=== PATIENT | male | born 1965 | race African-American/Black ===

== ENCOUNTER 2016-11-27 05:31 | Inpatient (IN) ==
[2016-11-22 12:47] LABS: Basophils % 0.4 % (0.0-0.8); Eosinophils # 0.3 10*3/uL (0.0-0.87); Eosinophils % 3.6 % (0.00-10.9); Hematocrit 45.8 VOL% (42.0-52.0); Hemoglobin 16.2 GM/DL (14.0-18.0); Immature Granulocytes % 0.2 %; Immature Granulocytes Absolute 0.02 #; Lymphocytes # 2.8 10*3/uL (1.4-4.0); Lymphocytes % 32.3 % (21.2-54.2); Mean Corpuscular HGB Conc 35.4 GM/DL (32-36); Mean Corpuscular Hemoglobin 31 PG (27-34); Mean Corpuscular Volume 86.3 FL (87-102); Mean Platelet Volume 10.8 FL (9.6-12.0); Monocytes # 0.8 10*3/uL (0.11-0.8); Monocytes % 9.3 % (1.7-12.7); Neutrophils # 4.6 10*3/uL (1.4-7.4); Neutrophils % 54.2 % (38.7-73.9); Platelet Count 193 T/CUMM (130-400); Red Blood Count 5.31 MC/CUMM (3.8-5.5); Red Cell Distribution Width 13.5 % (9.3-17.3); White Blood Count 8.5 T/CUMM (4-12)
[2016-11-22 12:54] LABS: Apearance,Urine Slightly Hazy (Clear); Bacteria,Urine Occasional /HPF (Few); Bilirubin,Urine Negative (Negative); Blood, Urine Negative (Negative); Glucose,Urine (UA) Negative (Negative); Hyaline Casts,Urine 5 /LPF (0-3); Ketones,Urine Negative (Negative); Mucus,Urine Occasional /LPF (Occasional); Nitrite,Urine Negative (Negative); Protein,Urine >=500 MG/DL; RBC,Urine 3 /HPF (0-4); Squamous Epithelial Cell,Urine Occasional /HPF (0-10); Urine Color Yellow (Yellow); Urine Specific Gravity 1.023 (1.001-1.035); Urine Urobilinogen < 2.0 EU/DL (0.2-1.0); WBC,Urine 16 /HPF (0-6)
[2016-11-22 12:57] LABS: Partial Thromboplastin Time 26.4 SECS (0-40)
[2016-11-22 13:22] LABS: Albumin 3.4 G/DL (3.4-5.0); Bilirubin,Total 0.7 MG/DL (0.2-1.0); Osmolality,Calculated 277.3 MOS/KG (273-304); Total Protein 7.3 G/DL (6.4-8.3)
--- NOTE | 2016-11-22 13:28 | EKG Report ---
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
--- NOTE | 2016-11-22 13:30 | XRay Report ---
XR chest 2V Indication: Preop Comparison: None. Technique: PA and lateral chest x-ray was performed. Findings: Heart size, mediastinal contour, and hilar structures demonstrate no significant abnormalities. The lung parenchyma is clear. Bones and soft tissues demonstrate no significant abnormalities. Density within the right humeral head may reflect a focal area of enostosis. Impression: 1. No active cardiopulmonary disease. 11/22/2016 1:26 PM PROCEDURE INTERPRETED AT [facility] DEPARTMENT OF RADIOLOGY Final Report Signed by: Dr. Guru Neal
[2016-11-27] MEDS ORDERED: VANCOMYCIN INJ 1,000 MG in SODIUM CHLORIDE 0.9% 250 ML IV ONE (06:00)
[2016-11-27] MEDS ORDERED: LACTATED RINGERS 1,000 ML IV SCH (06:30)
[2016-11-27 06:33] LABS: Apearance,Urine CLEAR (Clear); Bacteria,Urine Occasional /HPF (Few); Bilirubin,Urine Negative (Negative); Blood, Urine Negative (Negative); Glucose,Urine (UA) Negative (Negative); Ketones,Urine Negative (Negative); Mucus,Urine Occasional /LPF (Occasional); Nitrite,Urine Negative (Negative); Protein,Urine 100 MG/DL; RBC,Urine 1 /HPF (0-4); Squamous Epithelial Cell,Urine Occasional /HPF (0-10); Urine Color Straw (Yellow); Urine Specific Gravity 1.005 (1.001-1.035); Urine Urobilinogen < 2.0 EU/DL (0.2-1.0); WBC,Urine 3 /HPF (0-6)
[2016-11-27] MEDS ORDERED: DIAZEPAM 5 MG TABLET PO ONE (06:46)
[2016-11-27] MEDS ORDERED: FAMOTIDINE 20 MG TABLET PO ONE (06:46)
[2016-11-27] MEDS ORDERED: hydrALAZINE 10 MG TABLET PO ONE (06:49)
--- NOTE | 2016-11-27 06:52 | History and Physical Update ---
History and Physical Update - History and Physical H&P was reviewed, the patient examined and there: are no changes in the patients condition since last H&P was completed. (had initially contaminated ua. ua this am negative.)
[2016-11-27] MEDS ORDERED: VANCOMYCIN 1,000 MG VIAL ONE (07:30)
[2016-11-27] MEDS ORDERED: ceFAZolin 1,000 MG VIAL ONE (07:30)
[2016-11-27] MEDS ORDERED: DIAZEPAM 5 MG TABLET ONE (07:31)
[2016-11-27] MEDS ORDERED: FAMOTIDINE 20 MG TABLET ONE (07:31)
[2016-11-27] MEDS ORDERED: SODIUM CHLORIDE 0.9% 100 ML IV ONE (07:31)
[2016-11-27] MEDS ORDERED: hydrALAZINE 20 MG/1 ML VIAL ONE ×2 (07:31→09:17)
[2016-11-27] MEDS ORDERED: TRANEXAMIC ACID 1,000 MG/10 ML VIAL IV ONE (09:06)
[2016-11-27] MEDS ORDERED: ONDANSETRON 4 MG/2 ML VIAL IV PRN (09:25)
[2016-11-27] MEDS ORDERED: ZALEPLON 5 MG CAPSULE PO PRN (09:25)
[2016-11-27] MEDS ORDERED: MAGNESIUM HYDROXIDE SUSP 30 ML UDCUP PO PRN (09:25)
[2016-11-27] MEDS ORDERED: diphenhydrAMINE CAP 25 MG CAPSULE PO PRN (09:25)
[2016-11-27] MEDS ORDERED: oxyCODONE IR 5 MG TABLET PO PRN ×2 (09:25)
[2016-11-27] MEDS ORDERED: MORPHINE 2 MG/1 ML SYRINGE IV PRN ×2 (09:25)
[2016-11-27] MEDS ORDERED: PROPOFOL 200 MG/20 ML VIAL IV ONE ×2 (09:27→12:42)
[2016-11-27] MEDS ORDERED: hydrALAZINE 20 MG/1 ML VIAL IV ONE (09:27)
[2016-11-27] MEDS ORDERED: METOPROLOL TARTRATE 5 MG/5 ML VIAL IV ONE ×2 (09:27→12:44)
[2016-11-27] MEDS ORDERED: LIDOCAINE 2% 5 ML VIAL ONE (09:27)
--- NOTE | 2016-11-27 09:36 | Operative Note ---
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 Left lower extremities prepped and draped in usual sterile fashion. Posteriolateral approach to the hip was made. Skin, subcutaneous tissue and deep fascia was incised longitudinally. Gluteus elvis muscle belly was split in line with its fibers. Piriformis, external rotators and capsule were taken down as a single layer as an inverted L shaped capsulotomy. Hip was dislocated. Templated femoral neck cut was made. Acetabulum was prepared by sequentially reaming to 53 mm. A 54 mm Continuum acetabular shell was press-fit with excellent stability. 1 6.5 millimeter screw was placed with an excellent bite. 32 mm neutral Longevity liner was placed with a dome hole plug. Femur was prepared sequentially with the box osteotome, canal finder and sequential broaches to 14. Components were trialed. A size 14 Versys fiber metal tapered stem was press-fit. A 32+0 mm head was placed. The component was stable posteriorly and anteriorly. Capsule was repaired with #5 Tycron. Deep fascia was closed with 0 Vicryl figure-of- eight suture. Subcutaneous tissue was closed deep with a 2-0 Vicryl runner and superficially with 3-0 interrupted buried sutures. Skin was closed with raysa. Bacitracin and a sterile occlusive dressing was applied. Surgeon / Physician: Oswald Pantoja Jr. Results - Labs CBC & BMP: 11/22/16 12:38 11/22/16 12:38 Discharge Plan - Discharge Medications No Action Carvedilol [Coreg] 25 mg PO DAILY - Follow Up or Referral - Forms/Instructions
[2016-11-27] MEDS ORDERED: BACITRACIN OINT 0.9 GM PACK TOP ONE (10:49)
[2016-11-27 11:08] LABS: Apearance,Urine CLEAR (Clear); Bilirubin,Urine Negative (Negative); Blood, Urine Negative (Negative); Glucose,Urine (UA) Negative (Negative); Ketones,Urine Negative (Negative); Nitrite,Urine Negative (Negative); Protein,Urine Negative; RBC,Urine <1 /HPF (0-4); Squamous Epithelial Cell,Urine Occasional /HPF (0-10); Urine Color Straw (Yellow); Urine Specific Gravity 1.004 (1.001-1.035); Urine Urobilinogen < 2.0 EU/DL (0.2-1.0); WBC,Urine 3 /HPF (0-6)
--- NOTE | 2016-11-27 12:23 | XRay Report ---
XR hip 1V LT Indication: Joint replacement (left hip) Comparison: Left hip x-ray dated March 14, 2016 Technique: Single frontal view of the left hip Findings: Status post total left hip arthroplasty. No evidence of immediate hardware failure. Superficial skin raysa overlie the hip. Subcutaneous and joint space air noted which is likely postoperative. IMPRESSION: Status post total left hip arthroplasty. PROCEDURE INTERPRETED AT [facility] DEPARTMENT OF RADIOLOGY Final Report Signed by: Dr Jorge Beyer
[2016-11-27] MEDS ORDERED: KETAMINE 500 MG/10 ML VIAL ONE (12:43)
[2016-11-27] MEDS ORDERED: SODIUM CHLORIDE 0.9% 250 ML IV ONE (12:44)
[2016-11-27] MEDS ORDERED: MIDAZOLAM 2 MG/2 ML VIAL ONE (12:44)
[2016-11-27] MEDS ORDERED: fentaNYL 100 MCG/2 ML VIAL ONE (12:44)
[2016-11-27] MEDS ORDERED: MORPHINE 10 MG/10 ML VIAL ONE (12:44)
--- NOTE | 2016-11-27 13:55 | Hospitalist Consult Note ---
Assessment and Plan (1) Left hip pain Status: Acute Assessment and plan: POD#0 s/p left VIDA. Defer post-op management to include pain control and DVt prevention to ortho Current Visit: Yes (2) HTN (hypertension) Status: Chronic Assessment and plan: Chronic and controlled with home med which has been restarted Current Visit: Yes History of Present Illness - Data of Consult Consult date: 11/27/16 - Consult Narrative Reason for consult: HTN History of present illness: Mr. Iniguez is a 51 year old male admitted to the orthopedic service for end stage OA of the left hip that has not responded to conservative tx. He is currently POD#0 s/p left VIDA. PMH is also significant for HTN and gout. Hospitalist have been consulted to assist in management of HTN. Pt is prescribed Coreg and reports good BP control with this med as an out patient. Pt reports no uncontrolled pain or any other complaints at present. CC: Left Hip PAin - Home Medications and Allergies Home Medications: Home Medications Medication Instructions Recorded Confirmed Type Carvedilol [Coreg] 25 mg PO DAILY 01/17/15 11/27/16 History Allergies/Adverse Reactions: Allergies Allergy/AdvReac Type Severity Reaction Status Date / Time No Known Allergies Allergy Verified 11/27/16 07:46 Medical,Surgical,& Family Hx - Medical History Cardio: History of: Hypertension Neurology: No history of: Seizures HEENT: History of: Eye Problem (GLASSES) Endocrine: No history of: Diabetes Mellitus (IDDM), Diabetes Mellitus (NIDDM) Respiratory: No history of: Asthma, Pneumonia Renal: No history of: Renal Failure, Renal Problems Gastrointestinal: No history of: Gastrointestinal Bleed, Liver Problems, GI Problems Musculoskeletal: History of: Musculoskeletal Problems (OA LEFT FEMORAL NECK NON UNION) - Surgical History Abdominal Surgeries: Surgical HX of: Hernia Repair Orthopedic Surgeries: Surgical HX of;: Total Hip Replacement (LEFT HIP) - Family History Family History: Reports;: Family Diabetes (GF) - Social History Smoking Status: Never smoker Frequency of Alcohol Use: None Type of Drug Use: None 12 point system: reviewed and no additional remarkable complaints except as stated - Constitutional Constitutional: Present: as per HPI - EENT Eyes: Absent: loss of vision - Musculoskeletal Musculoskeletal: Present: arthralgias - Neurological Neurological: Present: abnormal gait Exam - Constitutional Vitals: Period Temp Pulse Resp BP Sys/Flor Pulse Ox Last 24 Hr 98 F-99.6 F 49-77 16-20 125-204/88-126 95-99 General appearance: no acute distress - Head Head exam: Present: normal inspection, normocephalic, atraumatic - Eye Eye exam: Present: EOMI. Absent: conjunctival injection, scleral icterus Pupils: Present: SATISH - ENT ENT exam: Present: normal exam - Neck Neck exam: Present: normal inspection. Absent: lymphadenopathy, meningismus - Respiratory Respiratory exam: Present: clear to auscultation bilaterally. Absent: accessory muscle use, rales, rhonchi, wheezes - Cardiovascular Cardiovascular exam: Present: regular rate and rhythm. Absent: gallop, rubs - GI/Abdominal GI/Abdominal exam: Present: normal bowel sounds, soft. Absent: distended, tenderness - Extremities Exam Extremities exam: Present: other (left LE surgical site CDI). Absent: edema - Neurological Exam Neurological exam: Present: alert, oriented X3. Absent: motor sensory deficit - Psychiatric Psychiatric exam: Present: normal affect, normal mood - Skin Skin exam: Present: normal color, warm, dry Results - Labs CBC & BMP: 11/22/16 12:38 11/22/16 12:38
[2016-11-27] MEDS: LACTATED RINGERS 1,000 ML IV SCH ×2 (15:12→18:04)
[2016-11-27] MEDS: KETOROLAC 30 MG/1 ML VIAL IV SCH ×4 (15:12→23:44)
[2016-11-27] MEDS: ACETAMINOPHEN 500 MG TABLET PO SCH ×2 (15:16→19:03)
[2016-11-27] MEDS: ceFAZolin 2,000 MG in PREMIX 1 EACH IV SCH ×2 (15:23→21:54)
[2016-11-27] MEDS: DOCUSATE SODIUM 100 MG CAPSULE PO SCH (21:52)
[2016-11-28] MEDS: LACTATED RINGERS 1,000 ML IV SCH (00:29)
[2016-11-28] MEDS: ACETAMINOPHEN 500 MG TABLET PO SCH ×2 (00:30→06:32)
[2016-11-28] MEDS ORDERED: FONDAPARINUX 2.5 MG/0.5 ML SYRINGE SUBCUT SCH (03:27)
[2016-11-28] MEDS: KETOROLAC 30 MG/1 ML VIAL IV SCH ×2 (03:55→09:33)
[2016-11-28 05:19] LABS: Basophils % 0.2 % (0.0-0.8); Eosinophils # 0.1 10*3/uL (0.0-0.87); Eosinophils % 1.2 % (0.00-10.9); Hematocrit 33.2 VOL% (42.0-52.0); Hemoglobin 11.5 GM/DL (14.0-18.0); Immature Granulocytes % 0.5 %; Immature Granulocytes Absolute 0.04 #; Lymphocytes # 1.8 10*3/uL (1.4-4.0); Lymphocytes % 20.3 % (21.2-54.2); Mean Corpuscular HGB Conc 34.6 GM/DL (32-36); Mean Corpuscular Hemoglobin 30 PG (27-34); Mean Corpuscular Volume 87.6 FL (87-102); Mean Platelet Volume 10.9 FL (9.6-12.0); Monocytes # 0.8 10*3/uL (0.11-0.8); Monocytes % 9.3 % (1.7-12.7); Neutrophils % 68.5 % (38.7-73.9); Platelet Count 136 T/CUMM (130-400); Red Blood Count 3.79 MC/CUMM (3.8-5.5); Red Cell Distribution Width 13.2 % (9.3-17.3); White Blood Count 8.7 T/CUMM (4-12)
[2016-11-28 05:42] LABS: Hypochromasia 1+; Platelet Estimate Adequate
[2016-11-28 05:48] LABS: Calcium 8.1 MG/DL (8.5-10.1); Osmolality,Calculated 276.4 MOS/KG (273-304); Potassium 3.6 MMOL/L (3.5-5.1)
[2016-11-28] MEDS: DOCUSATE SODIUM 100 MG CAPSULE PO SCH ×2 (08:34→20:42)
[2016-11-28] MEDS: CARVEDILOL 25 MG TABLET PO SCH (08:34)
--- NOTE | 2016-11-28 08:54 | Orthopedic Progress Note ---
Orthopedics - Subjective Interval history: Mr. Iniguez has done well with physical therapy. He has noticed a tremendous difference in his hip. He sat up in a chair approximately 90 minutes yesterday. Reviewing his stickers and implants today demonstrates that he has a mismatch between his liner and head, because the wrong implants were opened. The patient has a 32 mm head with a 36 mm liner. His wound demonstrates moderate serosanguineous drainage. His left lower extremities neurovascularly intact. Impression: Head-liner mismatch left hip Plan: I have discussed with the patient that the wrong implants were opened. Unfortunately, we will have to revise his components with a head exchange. I' ve apologized. I am going to hold his Arixtra and put him on the schedule for tomorrow. All questions were answered. Proceed with physical therapy today. Exam - Constitutional Vitals: Period Temp Pulse Resp BP Sys/Flor Pulse Ox Last 24 Hr 97.7 F-99.5 F 49-79 16-20 124-166/76-113 95-100 Results - Labs CBC & BMP: 11/28/16 05:06 11/28/16 05:06
[2016-11-28] MEDS ORDERED: ACETAMINOPHEN 325 MG TABLET PO PRN (09:26)
--- NOTE | 2016-11-28 10:01 | Hospitalist Progress Note ---
Assessment and Plan - Time spent with patient Time spent with patient: Greater than 30 minutes (1) S/P total hip arthroplasty Status: Acute Assessment and plan: Defer to Ortho. Current Visit: Yes (2) HTN (hypertension) Status: Chronic Assessment and plan: Seems well controlled. Left arm blood pressure anomaly is likely an error. Current Visit: Yes Hospitalist: Subjective Interval history: No complaints or overnight events. Mild temperature of 99.5. Left arm blood pressure was documented at 204/126. Right arm blood pressures have been stable. Exam - Constitutional Vitals: Period Temp Pulse Resp BP Sys/Flor Pulse Ox Last 24 Hr 97.7 F-99.5 F 49-79 16-20 124-166/76-113 95-100 General appearance: no acute distress - Head Head exam: Present: normocephalic, atraumatic - Eye Eye exam: Present: EOMI Pupils: Present: SATISH - ENT ENT exam: Present: normal exam - Neck Neck exam: Present: normal inspection - Respiratory Respiratory exam: Present: clear to auscultation bilaterally. Absent: rhonchi, wheezes - Cardiovascular Cardiovascular exam: Present: regular rate and rhythm. Absent: gallop, rubs, systolic murmur - GI/Abdominal GI/Abdominal exam: Present: normal bowel sounds, soft. Absent: distended, firm , guarding, tenderness, rebound - Extremities Exam Extremities exam: Present: normal inspection, other (left leg hip incision). Absent: calf tenderness, edema Results - Labs CBC & BMP: 11/28/16 05:06 11/28/16 05:06 Lab Results: I have reviewed the past 24 hour labs
--- NOTE | 2016-11-28 11:53 | Anesthesia Post-Op ---
Anesthesia Post OP - Post Ansesthetic Evaluation Patient seen in post op: Yes Resp: within normal limits CV: within normal limits Mental: within normal limits Temp: within normal limits Uroq-Vx-Hihywxmnx: within normal limits Nausea and Vomiting: within normal limits Pain: within normal limits
[2016-11-28 12:56] LABS: Fibrinogen Quant Value 428 MG% (200-400); INR 1.2; PT Patient Result 12.7 SECS
--- NOTE | 2016-11-28 13:28 | Pathology Report from [facility] ---
[facility] ACCESSION # : [id number] PATIENT NAME : Elvis Kingston ORDERING DR : PRASAD WINN MD CLINICAL HX: Left hip osteoarthritis - Non union POST-OP DX: Same SPECIMEN INFO: Left hip bursa tissue GROSS DESCRIPTION: The specimen is received in formalin labeled with the patients name and consists of a focally degenerative femoral head measuring 4.5 x 4.8 x 5.5 cm. The articular surface is focally roughened with no subchondral eburnation seen. Received separately in the container is a portion of femoral neck measuring 3.8 x 2.5 x 2.2 cm. Cut surfaces are smooth with no softening appreciated. Sketch Maker tissue submitted in one cassette following decalcification. DIAGNOSIS FOR ELVIS KINGSTON: LEFT HIP BONE & TISSUE, TOTAL REPLACEMENT: Osteoarthritis. COLLECTED DATE: 11/27/2016 [facility] REPORT DATE: 11/28/2016 ELECTRONICALLY SIGNED BY: Berhane Joshi M.D. 11/28/2016 - 10:29:25 MTDAshanti
[2016-11-28] MEDS: CELECOXIB 200 MG CAPSULE PO SCH (15:34)
[2016-11-29 04:53] LABS: Basophils % 0.1 % (0.0-0.8); Eosinophils # 0.1 10*3/uL (0.0-0.87); Eosinophils % 1.4 % (0.00-10.9); Hematocrit 28.4 VOL% (42.0-52.0); Hemoglobin 10.2 GM/DL (14.0-18.0); Immature Granulocytes % 1.4 %; Immature Granulocytes Absolute 0.13 #; Lymphocytes # 2.2 10*3/uL (1.4-4.0); Mean Corpuscular HGB Conc 35.9 GM/DL (32-36); Mean Corpuscular Hemoglobin 31 PG (27-34); Mean Corpuscular Volume 87.1 FL (87-102); Mean Platelet Volume 10.7 FL (9.6-12.0); Monocytes # 1.1 10*3/uL (0.11-0.8); Neutrophils % 63.1 % (38.7-73.9); Platelet Count 120 T/CUMM (130-400); Red Blood Count 3.26 MC/CUMM (3.8-5.5); Red Cell Distribution Width 13.1 % (9.3-17.3); White Blood Count 9.6 T/CUMM (4-12)
[2016-11-29] MEDS ORDERED: VANCOMYCIN INJ 1,000 MG in SODIUM CHLORIDE 0.9% 250 ML IV ONE (05:00)
[2016-11-29 05:23] LABS: Osmolality,Calculated 275.4 MOS/KG (273-304); Potassium 3.2 MMOL/L (3.5-5.1)
[2016-11-29 05:24] LABS: Hypochromasia 1+; Lymphocytes 19 % (20-55); Platelet Estimate Normal; Segmented Neutrophils 75 % (50-85); Total Cells Counted 100
[2016-11-29] MEDS ORDERED: ceFAZolin 2,000 MG in PREMIX 1 EACH IV ONE (06:00)
[2016-11-29] MEDS ORDERED: PHENYLEPHRINE 1 MG/10 ML SYRINGE IV ONE (06:59)
[2016-11-29] MEDS ORDERED: PROPOFOL 200 MG/20 ML VIAL IV ONE (06:59)
[2016-11-29] MEDS ORDERED: MORPHINE 10 MG/10 ML VIAL ONE (07:00)
--- NOTE | 2016-11-29 07:19 | Orthopedic Progress Note ---
Orthopedics - Subjective Interval history: Mr. Iniguez was able to walk in the pantoja yesterday. He has been pleased with his pain relief. Exam left lower extremity shows moderate serosanguineous drainage. His left lower extremities neurovascularly intact. Impression: Head-liner mismatch status post left total hip arthroplasty Plan: I reviewed the indication rationale for the revision procedure. All questions were answered. Exam - Constitutional Vitals: Period Temp Pulse Resp BP Sys/Flor Pulse Ox Last 24 Hr 98.8 F-100.4 F 69-98 16-20 119-162/78-91 97-100 Results - Labs CBC & BMP: 11/29/16 04:41 11/29/16 04:41
--- NOTE | 2016-11-29 07:29 | Operative Note ---
Procedure: DIAGNOSIS: Left head-liner mismatch status post left total hip arthroplasty PROCEDURE: Revision left total hip with head exchange SURGEON: Scarlett ANESTHESIA: Spinal PROCEDURE and FINDINGS: After adequate anesthesia was induced, the patient was placed in lateral decubitus position. His left hip was prepped and draped in usual sterile fashion. His raysa and previous sutures were removed. A large subfascial organizing hematoma was removed. His hip was dislocated. 32 mm femoral head was removed and replaced with 36 mm +0 femoral head. His wound was copiously irrigated. His wound was closed in layers. Capsule was closed with #5 Tycron mfucwv-kf-aqata suture. The fascia was closed with 0 Vicryl yyjxvm-vm-ialpw suture. Subcutaneous tissue was closed deep with a 2-0 Vicryl runner and superficially with 3-0 Vicryl interrupted buried suture. Raysa were utilized to close the skin. Surgeon / Physician: Oswald Pantoja Jr. Results - Labs CBC & BMP: 11/29/16 04:41 11/29/16 04:41 Discharge Plan - Discharge Medications No Action Carvedilol 6.25 mg PO DAILY - Follow Up or Referral - Forms/Instructions
[2016-11-29] MEDS ORDERED: DEXTROSE 5% LACTATED RINGERS 1,000 ML IV SCH (07:30)
[2016-11-29] MEDS ORDERED: TRANEXAMIC ACID 1,000 MG/10 ML VIAL IV ONE (07:49)
[2016-11-29] MEDS ORDERED: BACITRACIN OINT 0.9 GM PACK TOP ONE (07:49)
--- NOTE | 2016-11-29 08:23 | Anesthesia Post-Op ---
Anesthesia Post OP - Post Ansesthetic Evaluation Patient seen in post op: Yes Resp: within normal limits CV: within normal limits Mental: within normal limits Temp: within normal limits Ddpk-Aj-Ynfmjsdxz: within normal limits Nausea and Vomiting: within normal limits Pain: within normal limits
[2016-11-29] MEDS ORDERED: fentaNYL 100 MCG/2 ML VIAL ONE (08:30)
[2016-11-29] MEDS ORDERED: MIDAZOLAM 2 MG/2 ML VIAL ONE (08:30)
[2016-11-29] MEDS ORDERED: KETAMINE 500 MG/10 ML VIAL ONE (08:31)
--- NOTE | 2016-11-29 08:32 | Discharge Summary ---
<Oswald Pantoja Jr. - Last Filed: 11/29/16 08:33> Hospital Course - Hospital Course Hospital Course: Mr. Iniguez was admitted after undergoing a left total hip arthroplasty. The procedure was complicated with the wrong components being opened and implanted. The patient underwent revision femoral stem with a head exchange from a 32+0 mm head to a 36+0 mm head. He received perioperative DVT and antimicrobial prophylaxis. He received physical therapy. He was discharged home in stable condition. Discharge Plan - Discharge Data Disposition: Disch To Home/Self Care Condition at Discharge: Stable Discharge Diet: advance to your usual diet Activity: ambulate only with your walker Hygiene: may shower Weight Bearing at Discharge: weight bear as tolerated Driving: not until seen by doctor - Discharge Medications Continue Carvedilol 6.25 mg PO DAILY - Follow Up or Referral - Forms/Instructions Additional Discharge Instructions: Posterior hip precautions for 3 months. Daily dry dressing changes. Arrange for walker and bedside commode for home use. Wear RICHIE hose for 1 month. Follow-up appointment in 10 days. Prescription for [place] 7.5 was written. Take aspirin 325 mg by mouth daily for 21 days. Set up outpatient physical therapy 3 times a week for 4 weeks. Exam - Constitutional Vitals: Period Temp Pulse Resp BP Sys/Flor Pulse Ox Last 24 Hr 97.0 F-101.2 F 71-82 18-20 127-164/76-88 96-100 DS: Provider Date of admission: 11/27/16 05:31 Primary care physician: . No PCP Attending physician on admission: Oswald Pantoja Jr., Consults: 11/27/16 09:25 Consult to Case Mgmt/Social Srvs [CONS] Routine Reason for Case Mgmt/Social Srvs: Rehab Home Health Equipment Consult Comment: Bedside Commode,Del to RM 317 Today before D/C home; Pt 5ft 11in 202lbs Consult to Occupational Therapy [CONS] Routine Reason for Occupational Therapy: Evaluate and Treat Consult Comment: ADL's Consult to Physical Therapy [CONS] Routine Reason for Physical Therapy: Evaluate and Treat Gait Training Start Therapy: Today Consult Comment: wbat with walker, posterior hip precautions 11/27/16 11:22 Consult to Physician [CONS] Routine 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 Provider: Consulting Provider Notified: Yes When should Consulting Provider be notified: Now Consult to Specialist Group: Hospitalist When should Consulting Provider be notified: Now Person Notified: nikko called Date Notified: 11/27/16 Time Notified: 13:32 11/28/16 15:25 Consult to Outpatient Therapy [CONS] Routine Reason for Outpatient Therapy: Physical Therapy Consult Comment: Pt will do OP Rehab @ [facility] after inpatient @ [facility] when D/C'd Discharging clinician: Oswald Pantoja Jr., <Clive Skelton - Last Filed: 12/01/16 10:23> Diagnosis - Discharge Diagnosis (1) S/P total hip arthroplasty Status: Acute
[2016-11-29] MEDS ORDERED: LACTATED RINGERS 1,000 ML IV SCH (09:00)
[2016-11-29] MEDS: CARVEDILOL 25 MG TABLET PO SCH (09:35)
[2016-11-29] MEDS: DOCUSATE SODIUM 100 MG CAPSULE PO SCH ×2 (09:35→20:37)
[2016-11-29] MEDS: CELECOXIB 200 MG CAPSULE PO SCH (09:35)
[2016-11-29] MEDS: POTASSIUM CHLORIDE 20 MEQ TABLET PO SCH ×2 (09:36→20:38)
--- NOTE | 2016-11-29 11:12 | Orthopedic Progress Note ---
Orthopedics - Subjective Interval history: Post op check. Comfortable. Dressing dry. NV ok. Mobilize with therapy. Exam - Constitutional Vitals: Period Temp Pulse Resp BP Sys/Flor Pulse Ox Last 24 Hr 98.6 F-100.4 F 70-98 16-20 128-162/78-97 96-100 Results - Labs CBC & BMP: 11/29/16 04:41 11/29/16 04:41
[2016-11-29] MEDS: ceFAZolin 2,000 MG in PREMIX 1 EACH IV SCH ×2 (13:34→21:38)
--- NOTE | 2016-11-29 13:39 | Hospitalist Progress Note ---
Assessment and Plan - Time spent with patient Time spent with patient: Greater than 30 minutes (1) S/P total hip arthroplasty Status: Acute Assessment and plan: Defer to Ortho. Current Visit: Yes (2) HTN (hypertension) Status: Chronic Assessment and plan: Seems well controlled. Current Visit: Yes Hospitalist: Subjective Interval history: Patient has returned from the OR where he had a revision of his hardware. Currently no complaints. Exam - Constitutional Vitals: Period Temp Pulse Resp BP Sys/Flor Pulse Ox Last 24 Hr 98.6 F-100.4 F 61-98 16-20 117-162/73-97 94-100 General appearance: no acute distress - Head Head exam: Present: normocephalic, atraumatic - Eye Eye exam: Present: EOMI Pupils: Present: SATISH - ENT ENT exam: Present: normal exam - Neck Neck exam: Present: normal inspection - Respiratory Respiratory exam: Present: clear to auscultation bilaterally. Absent: rhonchi, wheezes - Cardiovascular Cardiovascular exam: Present: regular rate and rhythm. Absent: gallop, rubs, systolic murmur - GI/Abdominal GI/Abdominal exam: Present: normal bowel sounds, soft. Absent: distended, firm , guarding, tenderness, rebound - Extremities Exam Extremities exam: Present: normal inspection. Absent: calf tenderness, edema Results - Labs CBC & BMP: 11/29/16 04:41 11/29/16 04:41 Lab Results: I have reviewed the past 24 hour labs
[2016-11-30 05:15] LABS: Basophils % 0.1 % (0.0-0.8); Eosinophils # 0.2 10*3/uL (0.0-0.87); Eosinophils % 2.6 % (0.00-10.9); Hematocrit 25.6 VOL% (42.0-52.0); Hemoglobin 8.9 GM/DL (14.0-18.0); Immature Granulocytes % 0.4 %; Immature Granulocytes Absolute 0.03 #; Lymphocytes # 1.7 10*3/uL (1.4-4.0); Lymphocytes % 21.4 % (21.2-54.2); Mean Corpuscular HGB Conc 34.8 GM/DL (32-36); Mean Corpuscular Hemoglobin 31 PG (27-34); Mean Corpuscular Volume 88.6 FL (87-102); Mean Platelet Volume 10.4 FL (9.6-12.0); Monocytes # 0.8 10*3/uL (0.11-0.8); Monocytes % 10.2 % (1.7-12.7); Neutrophils # 5.2 10*3/uL (1.4-7.4); Neutrophils % 65.3 % (38.7-73.9); Platelet Count 137 T/CUMM (130-400); Red Blood Count 2.89 MC/CUMM (3.8-5.5); Red Cell Distribution Width 13.1 % (9.3-17.3)
[2016-11-30] MEDS: FONDAPARINUX 2.5 MG/0.5 ML SYRINGE SUBCUT SCH (06:05)
[2016-11-30 08:21] LABS: Calcium 7.9 MG/DL (8.5-10.1); Osmolality,Calculated 278.3 MOS/KG (273-304); Potassium 3.7 MMOL/L (3.5-5.1)
[2016-11-30] MEDS: CELECOXIB 200 MG CAPSULE PO SCH (09:27)
[2016-11-30] MEDS: DOCUSATE SODIUM 100 MG CAPSULE PO SCH ×2 (09:28→20:00)
[2016-11-30] MEDS: CARVEDILOL 25 MG TABLET PO SCH (09:28)
[2016-11-30] MEDS: POTASSIUM CHLORIDE 20 MEQ TABLET PO SCH (09:29)
--- NOTE | 2016-11-30 10:05 | Orthopedic Progress Note ---
Assessment and Plan (1) S/P total hip arthroplasty Status: Acute Assessment and plan: DVT prophylaxis Continue therapy Daily dressing change Possible discharge to rehab tomorrow Current Visit: Yes Orthopedics - Subjective Interval history: Patient states his hip is sore this morning. Otherwise no complaints. He is sitting in the chair and has ambulated with therapy. On exam, his dressings clean and dry. Exam - Constitutional Vitals: Period Temp Pulse Resp BP Sys/Flor Pulse Ox Last 24 Hr 97.7 F-99.4 F 69-94 17-20 106-149/55-87 94-100 Results - Labs CBC & BMP: 11/30/16 04:59 11/30/16 05:00
--- NOTE | 2016-11-30 13:45 | Hospitalist Progress Note ---
Assessment and Plan - Time spent with patient Time spent with patient: Greater than 30 minutes (1) S/P total hip arthroplasty Status: Acute Assessment and plan: Defer to Ortho. Current Visit: Yes (2) HTN (hypertension) Status: Chronic Assessment and plan: Seems well controlled. Current Visit: Yes Hospitalist: Subjective Interval history: No complaints or overnight events. Revision of hardware yesterday. Exam - Constitutional Vitals: Period Temp Pulse Resp BP Sys/Flor Pulse Ox Last 24 Hr 97.7 F-99.4 F 73-90 18-20 106-149/55-81 96-100 General appearance: no acute distress - Head Head exam: Present: normocephalic, atraumatic - Eye Eye exam: Present: EOMI Pupils: Present: SATISH - ENT ENT exam: Present: normal exam - Neck Neck exam: Present: normal inspection - Respiratory Respiratory exam: Present: clear to auscultation bilaterally. Absent: rhonchi, wheezes - Cardiovascular Cardiovascular exam: Present: regular rate and rhythm. Absent: gallop, rubs, systolic murmur - GI/Abdominal GI/Abdominal exam: Present: normal bowel sounds, soft. Absent: distended, firm , guarding, tenderness, rebound - Extremities Exam Extremities exam: Present: normal inspection. Absent: calf tenderness, edema Results - Labs CBC & BMP: 11/30/16 04:59 11/30/16 05:00 Lab Results: I have reviewed the past 24 hour labs
[2016-12-01] MEDS: FONDAPARINUX 2.5 MG/0.5 ML SYRINGE SUBCUT SCH (06:07)
[2016-12-01] MEDS: DOCUSATE SODIUM 100 MG CAPSULE PO SCH (08:34)
[2016-12-01] MEDS: CELECOXIB 200 MG CAPSULE PO SCH (08:34)
[2016-12-01] MEDS: CARVEDILOL 25 MG TABLET PO SCH (08:35)
--- NOTE | 2016-12-01 09:58 | Orthopedic Progress Note ---
Assessment and Plan (1) S/P total hip arthroplasty Status: Acute Assessment and plan: Patient desires to be discharged home rather than to rehab, he is currently unsure of why there are plans for discharge to rehab. We will continue physical therapy today We will plan to discharge patient home or to rehab tomorrow after discussion with Dr. Pantoja, his primary physician Current Visit: Yes Orthopedics - Subjective Interval history: Patient continues to improve, has minimal complaints this morning. On exam his dressings clean and dry, is neurovascularly intact. Exam - Constitutional Vitals: Period Temp Pulse Resp BP Sys/Flor Pulse Ox Last 24 Hr 97.0 F-101.2 F 71-82 18-20 127-164/76-88 96-100 Results - Labs CBC & BMP: 11/30/16 04:59 11/30/16 05:00
[2016-12-01 11:08] VITALS: BP 142/87
--- NOTE | 2016-12-01 14:04 | Hospitalist Progress Note ---
Assessment and Plan - Time spent with patient Time spent with patient: Greater than 30 minutes (1) S/P total hip arthroplasty Status: Acute Assessment and plan: Defer to Ortho. Current Visit: Yes (2) HTN (hypertension) Status: Chronic Assessment and plan: Seems well controlled. Current Visit: Yes Hospitalist: Subjective Interval history: No overnight events, no complaints. Exam - Constitutional Vitals: Period Temp Pulse Resp BP Sys/Flor Pulse Ox Last 24 Hr 97.0 F-101.2 F 68-82 16-20 128-164/76-88 96-100 General appearance: no acute distress - Head Head exam: Present: normocephalic, atraumatic - Eye Eye exam: Present: EOMI Pupils: Present: SATISH - ENT ENT exam: Present: normal exam - Neck Neck exam: Present: normal inspection - Respiratory Respiratory exam: Present: clear to auscultation bilaterally. Absent: rhonchi, wheezes - Cardiovascular Cardiovascular exam: Present: regular rate and rhythm. Absent: gallop, rubs, systolic murmur - GI/Abdominal GI/Abdominal exam: Present: normal bowel sounds, soft. Absent: distended, firm , guarding, tenderness, rebound - Extremities Exam Extremities exam: Present: normal inspection. Absent: calf tenderness, edema Results - Labs CBC & BMP: 11/30/16 04:59 11/30/16 05:00 Lab Results: I have reviewed the past 24 hour labs Specialty Discharge - Follow Up or Referrals Follow up with: Oswald Pantoja Jr., MD [Physician] - (Call Office Friday December 02, 2016 and make follow up apointment for 10 days.)
--- NOTE | 2016-12-02 12:16 | Pathology Report from [facility] ---
[facility] ACCESSION # : [id number] PATIENT NAME : Elvis Kingston ORDERING DR : PRASAD WINN MD CLINICAL HX: Head linear mismatch status post left total hip POST-OP DX: Same SPECIMEN INFO: Femoral head hardware GROSS DESCRIPTION: Received fresh labeled with the patients name ELVIS KINGSTON and consists of orthopedic hardware. Gross only. DIAGNOSIS FOR ELVIS KINGSTON: Femoral head orthopedic hardware, gross only. COLLECTED DATE: 11/29/2016 [facility] REPORT DATE: 12/02/2016 ELECTRONICALLY SIGNED BY: Naya Celis III, M.D. 12/02/2016 - 9:18:58 MTDAshanti
== END 2016-12-01 11:30 | disposition home or self-care (01) | DRG 301 ==
LOC: N.SDSINP 05:31 → N.3E 12:37
PROVIDERS: ADMIT Orthopaedic Surgery; ATTEND Orthopaedic Surgery

== ENCOUNTER 2017-03-04 06:36 | Inpatient (IN) ==
--- NOTE | 2017-03-03 09:28 | EKG Report ---
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
[2017-03-03 09:32] LABS: Basophils % 0.3 % (0.0-0.8); Eosinophils # 0.3 10*3/uL (0.0-0.87); Eosinophils % 3.6 % (0.00-10.9); Hematocrit 47.2 VOL% (42.0-52.0); Hemoglobin 16.2 GM/DL (14.0-18.0); Immature Granulocytes % 0.3 %; Immature Granulocytes Absolute 0.02 #; Lymphocytes # 1.6 10*3/uL (1.4-4.0); Lymphocytes % 23.3 % (21.2-54.2); Mean Corpuscular HGB Conc 34.3 GM/DL (32-36); Mean Corpuscular Hemoglobin 29 PG (27-34); Mean Corpuscular Volume 83.8 FL (87-102); Mean Platelet Volume 10.6 FL (9.6-12.0); Monocytes # 0.7 10*3/uL (0.11-0.8); Monocytes % 10.1 % (1.7-12.7); Neutrophils # 4.3 10*3/uL (1.4-7.4); Neutrophils % 62.4 % (38.7-73.9); Platelet Count 175 T/CUMM (130-400); Red Blood Count 5.63 MC/CUMM (3.8-5.5); Red Cell Distribution Width 14.5 % (9.3-17.3); White Blood Count 6.9 T/CUMM (4-12)
[2017-03-03 09:37] LABS: Apearance,Urine Slightly Hazy (Clear); Bilirubin,Urine Negative (Negative); Blood, Urine Negative (Negative); Glucose,Urine (UA) Negative (Negative); Ketones,Urine Negative (Negative); Mucus,Urine Occasional /LPF (Occasional); Nitrite,Urine Negative (Negative); Protein,Urine 100 MG/DL; RBC,Urine 1 /HPF (0-4); Squamous Epithelial Cell,Urine Occasional /HPF (0-10); Urine Color Yellow (Yellow); Urine Specific Gravity 1.011 (1.001-1.035); Urine Urobilinogen < 2.0 EU/DL (0.2-1.0); WBC,Urine 5 /HPF (0-6)
--- NOTE | 2017-03-03 09:37 | XRay Report ---
2 view chest 03/03/2017 8:55 AM Indication: Preoperative study Comparison: Not available Findings: Cardiomediastinal contours are normal. Lungs are clear bilaterally. . No acute osseous abnormalities. Visualized upper abdomen demonstrates no acute pathology. Impression: Normal chest PROCEDURE INTERPRETED AT [facility] DEPARTMENT OF RADIOLOGY Final Report Signed by: Guru Colmenares
[2017-03-03 10:00] LABS: PT Patient Result 10.4 SECS; Partial Thromboplastin Time 26.3 SECS (0-40)
[2017-03-03 10:03] LABS: Albumin 3.5 G/DL (3.4-5.0); Bilirubin,Total 0.5 MG/DL (0.2-1.0); Calcium 9.3 MG/DL (8.5-10.1); Osmolality,Calculated 276.4 MOS/KG (273-304); Total Protein 7.8 G/DL (6.4-8.3)
[~2017-03-04 06:36] MED LIST: VANCOMYCIN INJ 1,000 MG in SODIUM CHLORIDE 0.9% 250 ML IV ONE; ceFAZolin 2,000 MG in PREMIX 1 EACH IV ONE
[2017-03-04] MEDS ORDERED: BACITRACIN OINT 0.9 GM PACK TOP ONE (06:58)
[2017-03-04] MEDS ORDERED: NEOMYCIN/POLYMYXIN/BACITRACIN OINT 28.4 GM TUBE TOP ONE (06:59)
--- NOTE | 2017-03-04 07:04 | History and Physical Update ---
History and Physical Update - History and Physical H&P was reviewed, the patient examined and there: are no changes in the patients condition since last H&P was completed.
[2017-03-04] MEDS ORDERED: FAMOTIDINE 20 MG TABLET PO ONE (07:24)
[2017-03-04] MEDS ORDERED: DIAZEPAM 5 MG TABLET PO ONE (07:24)
[2017-03-04] MEDS ORDERED: DIAZEPAM 5 MG TABLET ONE (07:28)
[2017-03-04] MEDS ORDERED: VANCOMYCIN 1,000 MG VIAL ONE (07:28)
[2017-03-04] MEDS ORDERED: FAMOTIDINE 20 MG TABLET ONE (07:28)
[2017-03-04] MEDS ORDERED: KETOROLAC 30 MG/1 ML VIAL ONE (08:05)
[2017-03-04] MEDS ORDERED: ETOMIDATE 20 MG/10 ML VIAL IV ONE (08:05)
[2017-03-04] MEDS ORDERED: PHENYLEPHRINE 1 MG/10 ML SYRINGE IV ONE (08:05)
[2017-03-04] MEDS ORDERED: LIDOCAINE 2% 5 ML VIAL ONE (08:05)
[2017-03-04] MEDS ORDERED: ONDANSETRON 4 MG/2 ML VIAL ONE (08:05)
[2017-03-04] MEDS ORDERED: DEXAMETHASONE 10 MG/1 ML VIAL ONE (08:05)
[2017-03-04] MEDS ORDERED: PROPOFOL 200 MG/20 ML VIAL IV ONE (08:05)
[2017-03-04] MEDS: LACTATED RINGERS 1,000 ML IV SCH ×5 (08:21→20:46)
[2017-03-04] MEDS ORDERED: ZALEPLON 5 MG CAPSULE PO PRN (08:52)
[2017-03-04] MEDS ORDERED: oxyCODONE IR 5 MG TABLET PO PRN ×2 (08:52)
[2017-03-04] MEDS ORDERED: MORPHINE 2 MG/1 ML SYRINGE IV PRN ×2 (08:52)
[2017-03-04] MEDS ORDERED: ONDANSETRON 4 MG/2 ML VIAL IV PRN (08:52)
[2017-03-04] MEDS ORDERED: diphenhydrAMINE CAP 25 MG CAPSULE PO PRN (08:52)
[2017-03-04] MEDS ORDERED: MAGNESIUM HYDROXIDE SUSP 30 ML UDCUP PO PRN (08:52)
[2017-03-04] MEDS ORDERED: TRANEXAMIC ACID 1,000 MG/10 ML VIAL IV ONE (08:59)
--- NOTE | 2017-03-04 10:03 | Operative Note ---
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 Left lower extremities prepped and draped in usual sterile fashion. Posteriolateral approach to the hip was made. Skin, subcutaneous tissue and deep fascia was incised longitudinally. Gluteus elvis muscle belly was split in line with its fibers. Piriformis, external rotators and capsule were taken down as a single layer as an inverted L shaped capsulotomy. Hip was dislocated. Templated femoral neck cut was made. Acetabulum was prepared by sequentially reaming to 53 mm. A 54 mm Continuum acetabular shell was press-fit with excellent stability. 1 6.5 millimeter screw was placed with an excellent bite. 32 mm elevated rim longevity liner was placed with a dome hole plug. Femur was prepared sequentially with the box osteotome, canal finder and sequential broaches to 14. Components were trialed. A size 14 Versys fiber metal tapered stem was press-fit. A 32+3.5 mm head was placed. The component was stable posteriorly and anteriorly. Capsule was repaired with #5 Tycron. Deep fascia was closed with 0 Vicryl [id number] suture. Subcutaneous tissue was closed deep with a 2-0 Vicryl runner and superficially with 3-0 interrupted buried sutures. Skin was closed with raysa. Triple antibiotic ointment and a sterile occlusive dressing was applied. Surgeon / Physician: Oswald Pantoja Jr. Results - Labs CBC & BMP: 03/03/17 09:11 03/03/17 09:11 Discharge Plan - Discharge Medications No Action Allopurinol 100 mg PO DAILY Meloxicam [Mobic] 15 mg PO DAILY Carvedilol 6.25 mg PO BID Amlodipine Besylate 10 mg PO DAILY - Follow Up or Referral - Forms/Instructions
[2017-03-04] MEDS ORDERED: MIDAZOLAM 2 MG/2 ML VIAL ONE ×2 (10:19→10:20)
[2017-03-04] MEDS ORDERED: fentaNYL 100 MCG/2 ML VIAL ONE (10:19)
[2017-03-04] MEDS ORDERED: ACETAMINOPHEN 1,000 MG/100 ML VIAL IV ONE (10:20)
[2017-03-04] MEDS ORDERED: ePHEDrine 50 MG/ML AMP ONE (10:20)
[2017-03-04] MEDS ORDERED: SODIUM CHLORIDE 0.9% 100 ML IV ONE (10:21)
[2017-03-04] MEDS ORDERED: LACTATED RINGERS 1,000 ML IV ONE (10:21)
[2017-03-04] MEDS ORDERED: KETAMINE 500 MG/10 ML VIAL ONE (10:23)
--- NOTE | 2017-03-04 11:48 | XRay Report ---
XR hip 1V RT Indication: Hip arthroplasty Comparison: 27 November 2016 Findings: Hip arthroplasty has been performed. Alignment appears within normal limits. No periprosthetic fracture is seen. Impression: Expected appearance of hip arthroplasty. PROCEDURE INTERPRETED AT [facility] DEPARTMENT OF RADIOLOGY Final Report Signed by: Dr. Adam Buckley
[2017-03-04] MEDS: KETOROLAC 30 MG/1 ML VIAL IV SCH ×3 (12:03→20:43)
[2017-03-04] MEDS: DOCUSATE SODIUM 100 MG CAPSULE PO SCH ×2 (12:04→20:43)
[2017-03-04] MEDS: ACETAMINOPHEN 500 MG TABLET PO SCH ×2 (12:20→18:05)
[2017-03-04] MEDS: ceFAZolin 2,000 MG in PREMIX 1 EACH IV SCH ×2 (12:20→20:42)
--- NOTE | 2017-03-04 12:56 | Anesthesia Post-Op ---
Anesthesia Post OP - Post Ansesthetic Evaluation Patient seen in post op: Yes Resp: within normal limits CV: within normal limits Mental: within normal limits Temp: within normal limits [id number]: within normal limits Nausea and Vomiting: within normal limits Pain: within normal limits
--- NOTE | 2017-03-04 15:19 | Orthopedic Progress Note ---
Orthopedics - Subjective Interval history: Comfortable. Mildly sedated Dressing is clean, dry and intact. Right lower extremities neurovascularly unchanged. Plan: Continue with orders. Exam - Constitutional Vitals: Period Temp Pulse Resp BP Sys/Flor Pulse Ox Last 24 Hr 98 F-98.1 F 58-79 16-18 116-158/76-100 97-100 Results - Labs CBC & BMP: 03/03/17 09:11 03/03/17 09:11
[2017-03-04] MEDS: CARVEDILOL 6.25 MG TABLET PO SCH ×2 (17:20→21:08)
[2017-03-05] MEDS: ACETAMINOPHEN 500 MG TABLET PO SCH ×2 (00:45→07:31)
[2017-03-05] MEDS ORDERED: FONDAPARINUX 2.5 MG/0.5 ML SYRINGE SUBCUT SCH (02:53)
[2017-03-05 03:58] LABS: Hematocrit 38.2 VOL% (42.0-52.0); Hemoglobin 13.1 GM/DL (14.0-18.0); Immature Granulocytes % 0.3 %; Immature Granulocytes Absolute 0.04 #; Lymphocytes # 1.1 10*3/uL (1.4-4.0); Lymphocytes % 9.4 % (21.2-54.2); Mean Corpuscular HGB Conc 34.3 GM/DL (32-36); Mean Corpuscular Hemoglobin 29 PG (27-34); Mean Corpuscular Volume 83.4 FL (87-102); Mean Platelet Volume 11.4 FL (9.6-12.0); Monocytes # 1.1 10*3/uL (0.11-0.8); Monocytes % 9.2 % (1.7-12.7); Neutrophils # 9.8 10*3/uL (1.4-7.4); Neutrophils % 81.1 % (38.7-73.9); Platelet Count 176 T/CUMM (130-400); Red Blood Count 4.58 MC/CUMM (3.8-5.5); Red Cell Distribution Width 14.2 % (9.3-17.3); White Blood Count 12.1 T/CUMM (4-12)
[2017-03-05] MEDS: KETOROLAC 30 MG/1 ML VIAL IV SCH ×3 (04:22→10:55)
[2017-03-05 04:40] LABS: Calcium 8.7 MG/DL (8.5-10.1); Osmolality,Calculated 276.5 MOS/KG (273-304); Potassium 4.3 MMOL/L (3.5-5.1)
[2017-03-05] MEDS: LACTATED RINGERS 1,000 ML IV SCH (07:31)
[2017-03-05] MEDS: CARVEDILOL 6.25 MG TABLET PO SCH ×2 (10:13→20:11)
[2017-03-05] MEDS: DOCUSATE SODIUM 100 MG CAPSULE PO SCH ×2 (10:13→20:11)
[2017-03-05] MEDS: amLODIPine 10 MG TABLET PO SCH (10:14)
[2017-03-05] MEDS: ALLOPURINOL 100 MG TABLET PO SCH (10:14)
--- NOTE | 2017-03-05 12:15 | Orthopedic Progress Note ---
Orthopedics - Subjective Interval history: Mr. Iniguez is doing well. He was able to walk in the pantoja yesterday with physical therapy. He has serosanguineous drainage. His right lower extremities neurovascular change. Plan: Hold Arixtra for now. Stop IV fluids. Mobilize with physical therapy. Probably home tomorrow. Exam - Constitutional Vitals: Period Temp Pulse Resp BP Sys/Flor Pulse Ox Last 24 Hr 97.0 F-97.8 F 52-94 18-20 116-149/61-89 90-100 Results - Labs CBC & BMP: 03/05/17 03:31 03/05/17 03:31
--- NOTE | 2017-03-05 13:17 | Pathology Report from [facility] ---
[facility] [place] # : [id number] PATIENT NAME : Elvis Kingston ORDERING DR : PRASAD WINN MD CLINICAL HX: RT hip osteoarthritis POST-OP DX: Same SPECIMEN INFO: RT hip bone & tissue GROSS DESCRIPTION: The specimen is received in formalin labeled with the patients name and consists of a markedly degenerative femoral head measuring 5.7 x 5.9 x 4.8 cm. The articular surface displays an area of subchondral eburnation measuring 4.5 x 2.2 cm. The surgical margin is smooth with no softening appreciated. Received separately in the container is an aggregate of hemorrhagic bone and soft tissue measuring 6.5 x 3.5 cm in aggregate. Job Press Feeder tissue submitted in one cassette following decalcification. DIAGNOSIS FOR ELVIS KINGSTON: RIGHT HIP BONE & TISSUE, TOTAL REPLACEMENT: Osteoarthritis. COLLECTED DATE: 03/04/2017 [facility] [place] DATE: 03/05/2017 ELECTRONICALLY SIGNED BY: Berhane Joshi M.D. 03/05/2017 - 10:08:09 RICA
[2017-03-05] MEDS: CELECOXIB 200 MG CAPSULE PO SCH (15:27)
--- NOTE | 2017-03-05 17:59 | Discharge Summary ---
Hospital Course - Hospital Course Hospital Course: Mr. Iniguez was admitted after undergoing a right total hip replacement. He received perioperative DVT and antimicrobial prophylaxis. Because of increased wound drainage, Arixtra was stopped. He received physical therapy. He was discharged home in stable condition. Discharge Plan - Discharge Data Disposition: Disch To Home/Self Care Discharge Diet: advance to your usual diet Hygiene: may shower Weight Bearing at Discharge: weight bear as tolerated Driving: not until seen by doctor - Discharge Medications Continue Allopurinol 100 mg PO DAILY Meloxicam [Mobic] 15 mg PO DAILY Carvedilol 6.25 mg PO BID Amlodipine Besylate 10 mg PO DAILY - Follow Up or Referral - Forms/Instructions Additional Discharge Instructions: Posterior hip precautions for 3 months. Daily dry dressing changes. Arrange outpatient physical therapy. Wear RICHIE hose for 1 month. Follow-up appointment in 10-12 days. Prescription for Heth 7.5 was written. Take aspirin 325 mg by mouth daily for 21 days.. Exam - Constitutional Vitals: Period Temp Pulse Resp BP Sys/Flor Pulse Ox Last 24 Hr 97.0 F-98.6 F 56-94 18-20 116-149/61-87 90-100 Discharge Results Procedures and tests throughout hospitalization: Pending Orders 03/06/17 04:00 Comp Blood Count Auto Diff IN AM 03/07/17 04:00 Comp Blood Count Auto Diff IN AM Labs on day of discharge: Labs from last 24 hours 03/05/17 03/05/17 03:31 03:31 WBC 12.1 H D RBC 4.58 Hgb 13.1 L D Hct 38.2 L MCV 83.4 L MCH 29 MCHC 34.3 RDW 14.2 Plt Count 176 MPV 11.4 Neut % (Auto) 81.1 H Lymph % (Auto) 9.4 L Frontier % (Auto) 9.2 Eos % (Auto) 0.0 Baso % (Auto) 0.0 Neut # (Auto) 9.8 H Lymph # (Auto) 1.1 L Frontier # (Auto) 1.1 H Eos # (Auto) 0.0 Baso # (Auto) 0.0 Immature Gran % 0.3 Nucleated RBC % 0.0 Immature Gran # 0.04 Nucleated RBCs # 0.00 Immature Plt Fraction 0.0 Sodium 139 Potassium 4.3 Chloride 106 Carbon Dioxide 28 Anion Gap 9.3 BUN 10 Creatinine 1.00 GFR Calculation 127 BUN/Creatinine Ratio 10.00 Glucose 116 H Calculated Osmolality 276.5 Calcium 8.7 DS: Provider Date of admission: 03/04/17 08:52 Primary care physician: . No PCP Attending physician on admission: Oswald Pantoja Jr., Consults: 03/04/17 08:52 Consult to Case Mgmt/Social Srvs [CONS] Routine Reason for Case Mgmt/Social Srvs: Rehab Home Health Equipment Consult Comment: Bedside Commode, CPM, Walker Consult to Occupational Therapy [CONS] Routine Reason for Occupational Therapy: Evaluate and Treat Consult Comment: ADL's Consult to Physical Therapy [CONS] Routine Reason for Physical Therapy: Evaluate and Treat Gait Training Start Therapy: Today Consult Comment: wbat, hip precautions 03/04/17 12:03 Consult to Pastoral Services [CONS] Routine Comment: Pastoral Screen: Request Traveling Electrician Visit Pastoral Screen Source of Request: Patient 03/05/17 07:56 Consult to Outpatient Therapy [CONS] Routine Reason for Outpatient Therapy: Physical Therapy Consult Comment: Set up OP PT w/patient before D/C home to come to [facility] Discharging clinician: Oswald Pantoja Jr., Expected date of discharge: 03/06/17
[2017-03-06 05:57] LABS: Basophils % 0.1 % (0.0-0.8); Eosinophils % 0.2 % (0.00-10.9); Hemoglobin 12.2 GM/DL (14.0-18.0); Immature Granulocytes % 0.2 %; Immature Granulocytes Absolute 0.02 #; Lymphocytes # 2.7 10*3/uL (1.4-4.0); Lymphocytes % 25.8 % (21.2-54.2); Mean Corpuscular HGB Conc 33.9 GM/DL (32-36); Mean Corpuscular Hemoglobin 29 PG (27-34); Mean Corpuscular Volume 84.1 FL (87-102); Monocytes % 10.1 % (1.7-12.7); Neutrophils # 6.5 10*3/uL (1.4-7.4); Neutrophils % 63.6 % (38.7-73.9); Platelet Count 163 T/CUMM (130-400); Red Blood Count 4.28 MC/CUMM (3.8-5.5); Red Cell Distribution Width 14.6 % (9.3-17.3); White Blood Count 10.3 T/CUMM (4-12)
--- NOTE | 2017-03-06 07:12 | Orthopedic Progress Note ---
Orthopedics - Subjective Interval history: Comfortable. He was able to ambulate in the pantoja yesterday. He would like to be discharged later today. Right lower extremity is neurovascularly unchanged. He has slight serosanguineous drainage. Discharge instructions were reviewed. Home after physical therapy. Exam - Constitutional Vitals: Period Temp Pulse Resp BP Sys/Flor Pulse Ox Last 24 Hr 97.2 F-99.4 F 62-81 18-20 130-142/69-87 93-100 Results - Labs CBC & BMP: 03/06/17 03:51 03/05/17 03:31
[2017-03-06 07:38] VITALS: BP 142/86
[2017-03-06] MEDS: CARVEDILOL 6.25 MG TABLET PO SCH (08:39)
[2017-03-06] MEDS: amLODIPine 10 MG TABLET PO SCH (08:39)
[2017-03-06] MEDS: DOCUSATE SODIUM 100 MG CAPSULE PO SCH (08:39)
[2017-03-06] MEDS: CELECOXIB 200 MG CAPSULE PO SCH (08:39)
[2017-03-06] MEDS: ALLOPURINOL 100 MG TABLET PO SCH (08:39)
== END 2017-03-06 11:10 | disposition home or self-care (01) | DRG 301 ==
LOC: N.SDSINP 06:36 → N.3E 11:23
PROVIDERS: ADMIT Orthopaedic Surgery; ATTEND Orthopaedic Surgery